=== PATIENT | male | born 1940 | race Two or more races ===

== ENCOUNTER → 2020-10-10 14:51 | Outpatient (BNVA) | payer MEDICARE, SELFPAY | PROVIDERS: PCP Internal Medicine; Visit Provider Urology | CPT/HCPCS: Q3014 ==

== ENCOUNTER → 2021-10-10 14:44 | Outpatient (BNVA) | payer MEDICARE, SELFPAY | PROVIDERS: PCP Internal Medicine; Visit Provider Urology | DX: N40.1 Benign prostatic hyperplasia with lower urinary tract symptoms (principal); N13.8 Other obstructive and reflux uropathy; R39.12 Poor urinary stream; R35.1 Nocturia | CPT/HCPCS: 51798; 99212 ==

== ENCOUNTER → 2021-12-19 13:48 | Outpatient (BNVA) | payer MEDICARE, MEDICAID, SELFPAY | PROVIDERS: PCP Internal Medicine; Visit Provider Urology | DX: N40.1 Benign prostatic hyperplasia with lower urinary tract symptoms (principal); N13.8 Other obstructive and reflux uropathy; R35.1 Nocturia; R39.12 Poor urinary stream | CPT/HCPCS: 52000; 99212 ==

== ENCOUNTER → 2022-10-10 08:34 | Outpatient (BNVA) | payer MEDICARE, MEDICAID, SELFPAY | PROVIDERS: PCP Internal Medicine; Visit Provider Urology | DX: N40.1 Benign prostatic hyperplasia with lower urinary tract symptoms (principal); N13.8 Other obstructive and reflux uropathy; R39.12 Poor urinary stream; R35.1 Nocturia; Z79.01 Long term (current) use of anticoagulants; Z79.899 Other long term (current) drug therapy | CPT/HCPCS: 51798; 99212 ==

== ENCOUNTER 2023-04-10 10:05 | Outpatient (AMB) | payer MEDICARE, MEDICAID, SELFPAY ==
--- NOTE | 2023-04-10 10:11 | A.OFFVIS_ITS ---
Intake Intake Visit Reasons: 6m follow up/PVR Intake Note: Patient is present for Telephone Follow up Urology Med: Finasteride, Terazosin Antibiotic Allergy:None Blood Thinner: Eliquis [facility]acy: [facility] Allergies oxybutynin Allergy (Unknown, Verified 04/10/23 10:15) Unknown HPI HPI Comments History of Present Illness Details Santos RODRIGUEZ is a very pleasant Hebrew [place]. He is a patient of Dr Haile. He is seen today for the following urologic conditions. - lower urinary tract symptoms - weakness of stream Telemedicine Evaluation 15 min Consultation Energy Excelerator Coni Video attempted PVR today 0 Significantly improved urgency and frequency Minimal nocturia Prior Cystoscopy with trilobar hypertrophy - had discussed GreenLight laser prostate Six month review with PSA Lower Urinary Tract Symptoms: Current visit is for further evaluation of, lower urinary tract symptoms, predominate obstructive symptoms. Current treatment includes medication, 5-AR. - maximum dose alpha-yenny and finasteride - 10 mg terazosin, 5 mg finasteride Prostate Symptom Score /20 , Mild (0-8), Bother 3. Symptoms include incomplete emptying, nocturia (>2) 1/20 , weak stream, and are stable. Prostate volume 50+gm. Testing at next visit will include bladder scan. Treatment plan continue with current medications Review of Systems Const All systems reviewed & are unremarkable except as noted in HPI and below Reports no additional complaints Resp Reports no additional complaints GI Reports no additional complaints Reports as per HPI Musc Reports no additional complaints Physical Exam Telemedicine evaluation Appropriate responses Regular breathing rate and rhythm HEENT Head: Yes normal to inspection Ears: hearing grossly normal bilaterally Eyes General: appearance normal, both eyes and all related structures Neck Neck: Yes normal visual inspection Chest Chest palpation & inspection: normal inspection of the chest Resp Effort & Inspection: normal respiratory effort and able to speak in complete sentences Assessment & Plan Assessment & Plan (1) Weak urinary stream: Code(s): R39.12 - Poor urinary stream (2) Nocturia more than twice per night: Code(s): R35.1 - Nocturia (3) BPH w urinary obs/LUTS: Code(s): N40.1 - Benign prostatic hyperplasia with lower urinary tract symptoms; N13.8 - Other obstructive and reflux uropathy Plan Six month follow-up Patient Instructions: Imaging studies, laboratory and physical exam results were discussed and reviewed in detail. No major barriers to patient understanding were identified. An opportunity to ask questions regarding the treatment plan was provided. All questions were answered. The patient expressed understanding and agreement with the above treatment plan. The patient is aware they should contact our office by phone for worsening of their current condition or the appearance of new urologic symptoms. Compliance is encouraged with any medications and followup testing that is ordered. It is a privilege to participate in the urologic care of your patient. If you have any questions or concerns regarding treatment for the above conditions, or other urologic issues, please do not hesitate to contact me. The office telephone contact is [phone]. This note is constructed using voice recognition software. While every effort has been made to ensure accuracy early childhood education worker errors may have been included. Yours sincerely, Dr René Kaufman MD, [facility] - Urology Providers of Expert, Compassionate Care for the Genitourinary System Telehealth Telehealth Location of provider rendering services: practice address Location of patient: address on file Patient Identification confirmed using: Name, : Yes Telehealth method: video Patient verbally consented to treatment: Yes Patient verbally consented to billing insurance company: Yes Patient informed of any privacy concerns related to visit: Yes Coding Level of Care Code Tele Est Pt Level 3 (92239) Diagnoses Weak urinary stream R39.12 Nocturia more than twice per night R35.1 BPH w urinary obs/LUTS N40.1; N13.8
== END 2023-04-11 12:39 | disposition home or self-care (01) ==
LOC: HO.HUSH 10:05
PROVIDERS: PCP Internal Medicine; Visit Provider Urology
DX: N40.1 Benign prostatic hyperplasia with lower urinary tract symptoms (principal); R39.12 Poor urinary stream; R35.1 Nocturia; N13.8 Other obstructive and reflux uropathy
CPT/HCPCS: 99213

== ENCOUNTER → 2023-04-10 10:05 | Outpatient (BNVA) | payer MEDICARE, MEDICAID, SELFPAY | PROVIDERS: PCP Internal Medicine; Visit Provider Urology ==

== ENCOUNTER 2023-10-15 10:58 | Outpatient (REF) | payer MEDICARE, SELFPAY ==
[2023-10-15 12:49] LABS: Prostate Specific Antigen 1.78 ng/mL (<0.05-4.0)
== END 2023-10-15 10:59 | disposition home or self-care (01) ==
LOC: HO.LAB 10:58
PROVIDERS: Visit Provider Urology
DX: Z12.5 Encounter for screening for malignant neoplasm of prostate (principal); N40.1 Benign prostatic hyperplasia with lower urinary tract symptoms; N13.8 Other obstructive and reflux uropathy
CPT/HCPCS: 36415; 84153

== ENCOUNTER 2023-11-28 13:38 | Outpatient (AMB) | payer MEDICARE, SELFPAY ==
--- NOTE | 2023-11-28 13:38 | MHC.OFFVIS ---
Intake Intake Visit Reasons: 6M PSA/PVR(set)Confirmed Intake Note: Patient presents today for a follow up on: PSA/PVR Meds- None Allergies to Antibiotic- No Known Allergies Blood Thinner- Eliquis Patient stated he is not taking Terazosin or Finasteride Post Void Residual: 47ml Floor Coverings Installer Required: No Accompanied by: Self / Same As Patient Allergies oxybutynin Allergy (Unknown, Verified 11/28/23 13:51) Unknown Medication List - Last Reconciled 11/28/23 by René Kaufman MD allopurinol 100 mg PO DAILY apixaban (Eliquis) 5 mg PO BID atorvastatin 40 mg PO DAILY finasteride 5 mg PO DAILY 90 days lisinopril-hydrochlorothiazide 20-12.5 mg 1 tab PO DAILY metoprolol succinate ER 100 mg PO DAILY omeprazole 20 mg PO DAILY HPI HPI Comments History of Present Illness Details Santos RODRIGUEZ is a very pleasant Citizen Of [place] Ben[place]. He is a patient of Dr Haile. He is seen today for the following urologic conditions. - lower urinary tract symptoms - weakness of stream PVR 40 cc PSA 10/18 1.8 Prior Cystoscopy with trilobar hypertrophy - had discussed GreenLight laser prostate Lower Urinary Tract Symptoms: Current visit is for further evaluation of, lower urinary tract symptoms, predominate obstructive symptoms. Current treatment includes medication, 5-AR. - maximum dose alpha-yenny and finasteride - 10 mg terazosin, 5 mg finasteride Prostate Symptom Score 1/20 , Mild (0-8), Bother 3. Symptoms include incomplete emptying, nocturia (>2) 1/20 , weak stream, and are stable. Prostate volume 50+gm. Testing at next visit will include bladder scan. Treatment plan continue with current medications Review of Systems Const Denies chills and Denies fever(s) Card Reports no additional complaints and Denies syncope Resp Denies cough GI Denies abdominal pain and Denies heartburn Reports as per HPI and Denies change in libido Neuro Denies syncope Psych Denies change in libido Endo Denies change in libido Physical Exam Const General: cooperative, healthy appearing, comfortable and no acute distress Orientation/consciousness: patient oriented x3 HEENT Face and sinus: Yes normal facial exam Mouth: moist mucous membranes Neck Neck: Yes normal visual inspection, Yes full ROM and Yes trachea midline Chest Chest palpation & inspection: normal inspection of the chest Resp Effort & Inspection: normal respiratory effort, able to speak in complete sentences and no respiratory distress GI Inspection: Yes normal to inspection Back/Spine/Pelvis Cervical Spine: normal cervical lordosis Thoracic/Lumbar Spine: thoracic and lumbar spine normal to inspection Skin General skin exam: no rashes or lesions noted Neuro General: patient oriented x3, gait normal, tone normal and moves all extremities Extrem General: Yes normal to inspection and Yes capillary refill normal Office Procedures Post Void Residual Post Residual Void Post Void Residual (PVR): 47 [id number]-[id number] Void Residual by ultrasound Assessment & Plan Assessment & Plan (1) Nocturia more than twice per night: Code(s): R35.1 - Nocturia (2) BPH w urinary obs/LUTS: Code(s): N40.1 - Benign prostatic hyperplasia with lower urinary tract symptoms; N13.8 - Other obstructive and reflux uropathy (3) Weak urinary stream: Code(s): R39.12 - Poor urinary stream Plan We discussed the nature of the decision and reasonable options for performing a prostate intervention. Interventions include TURP, GreenLight laser enucleation of the prostate, GreenLight laser ablation of the prostate, transurethral incision of the prostate, and I-Tend prostate procedure. Options such as medical therapy were discussed. The relative uncertainties and benefits related to each alternate procedure were adequately discussed. General surgical risks including, but not limited to, pain, bleeding, infection, myocardial infarction, pulmonary embolus, deep vein thrombosis and cerebrovascular accident which may result in further hospitalization were discussed. Full disclosure of the procedure as well as all major risks, benefits and complications were discussed including but not limited to damage to the urethra or bladder neck, recurrent BPH, retrograde ejaculation, bladder infection, urge, de zohra frequency, incomplete emptying, dysuria, remote chance of erectile dysfunction, epididymitis, and meatal stenosis. The success rate of the procedure was discussed. Success of the procedure in the short-term does not necessarily guarantee that long-term success will be maintained. Suitable follow up will need to be maintained. The patient showed understanding of discussion. An opportunity was provided for questions to be answered and wishes to proceed with the following procedure. - GreenLight laser prostate Orders: Orders AMB Post Void Residual by ultrasound Today R33.9 - Retention of urine, unspecified Medications: New finasteride 5 mg PO DAILY 90 days 90 tabs 1RF N13.8 - Other obstructive and reflux uropathy, N40.1 - Benign prostatic hyperplasia with lower urinary tract symptoms, R33.9 - Retention of urine, unspecified Patient Instructions: Imaging studies, laboratory and physical exam results were discussed and reviewed in detail. No major barriers to patient understanding were identified. An opportunity to ask questions regarding the treatment plan was provided. All questions were answered. The patient expressed understanding and agreement with the above treatment plan. The patient is aware they should contact our office by phone for worsening of their current condition or the appearance of new urologic symptoms. Compliance is encouraged with any medications and followup testing that is ordered. It is a privilege to participate in the urologic care of your patient. If you have any questions or concerns regarding treatment for the above conditions, or other urologic issues, please do not hesitate to contact me. The office telephone contact is [phone]. This note is constructed using voice recognition software. While every effort has been made to ensure accuracy signal fitter errors may have been included. Yours sincerely, Dr René Kaufman MD, [facility] - Urology Providers of Expert, Compassionate Care for the Genitourinary System Coding Level of Care Code Est Pt Level 4 (63464) Diagnoses Nocturia more than twice per night R35.1 BPH w urinary obs/LUTS N40.1; N13.8 Weak urinary stream R39.12 CPT Codes Post Residual Void - PVR CPT Code: 21982-Ddyi Void Residual by ultrasound ([id number])
== END 2023-11-28 14:07 | disposition home or self-care (01) ==
LOC: HO.HUSH 13:38
PROVIDERS: PCP Internal Medicine; Visit Provider Urology
DX: N40.1 Benign prostatic hyperplasia with lower urinary tract symptoms (principal); R35.1 Nocturia; N13.8 Other obstructive and reflux uropathy; R39.12 Poor urinary stream
CPT/HCPCS: 99214

== ENCOUNTER → 2023-11-28 13:38 | Outpatient (BNVA) | payer MEDICARE, SELFPAY | PROVIDERS: PCP Internal Medicine; Visit Provider Urology | DX: N40.1 Benign prostatic hyperplasia with lower urinary tract symptoms (principal); N13.8 Other obstructive and reflux uropathy; R39.12 Poor urinary stream; R35.1 Nocturia | CPT/HCPCS: 51798; 99212 ==

== ENCOUNTER 2023-12-30 13:56 | Outpatient (AMB) | payer MEDICARE, SELFPAY ==
--- NOTE | 2023-12-30 13:56 | A.OFFVIS_ITS ---
Intake Visit Reasons: H&P procedure Intake Note: Patient presents today via phone for a follow up H&P Procedure: Meds- Finasteride Allergies to Antibiotic- No Known Allergies Blood Thinner- Eliquis Music Intern Required: No Accompanied by: Self / Same As Patient Allergies oxybutynin Allergy (Unknown, Verified 12/30/23 13:57) Unknown HPI Comments Details: Santos RODRIGUEZ is a very pleasant Yi Sudanese. He is a patient of Dr Haile. He is seen today for the following urologic conditions. - lower urinary tract symptoms - weakness of stream Telemedicine Evaluation 15 min Consultation [employer] Coni Video attempted Discussed greenlight laser therapy with Santos and daughter Questions answered PVR 40 cc PSA 10/18 1.8 Prior Cystoscopy with trilobar hypertrophy - had discussed GreenLight laser prostate Lower Urinary Tract Symptoms: Current visit is for further evaluation of, lower urinary tract symptoms, predominate obstructive symptoms. Current treatment includes medication, 5-AR. - maximum dose alpha-yenny and finasteride - 10 mg terazosin, 5 mg finasteride Prostate Symptom Score 1/20 , Mild (0-8), Bother 3. Symptoms include incomplete emptying, nocturia (>2) 1/20 , weak stream, and are stable. Prostate volume 50+gm. Testing at next visit will include bladder scan. Treatment plan continue with current medications Review of Systems Const Denies chills and Denies fever(s) Card Reports no additional complaints and Denies syncope Resp Denies cough GI Denies abdominal pain and Denies heartburn Reports as per HPI and Denies change in libido Neuro Denies syncope Psych Denies change in libido Endo Denies change in libido Physical Exam Const General: cooperative, healthy appearing, comfortable and no acute distress Orientation/consciousness: patient oriented x3 HEENT Face and sinus: Yes normal facial exam Mouth: moist mucous membranes Neck Neck: Yes normal visual inspection, Yes full ROM and Yes trachea midline Chest Chest palpation & inspection: normal inspection of the chest Resp Effort & Inspection: normal respiratory effort, able to speak in complete sentences and no respiratory distress GI Inspection: Yes normal to inspection Back/Spine/Pelvis Cervical Spine: normal cervical lordosis Thoracic/Lumbar Spine: thoracic and lumbar spine normal to inspection Skin General skin exam: no rashes or lesions noted Neuro General: patient oriented x3, gait normal, tone normal and moves all extremities Extrem General: Yes normal to inspection and Yes capillary refill normal Telehealth Telehealth Telehealth Platform: [employer] Location of provider rendering services: practice address Location of patient: address on file Patient Identification confirmed using: Name, : Yes Telehealth method: video Patient verbally consented to treatment: Yes Patient verbally consented to billing insurance company: Yes Patient informed of any privacy concerns related to visit: Yes Minutes spent on Phone/Video with Pt.: 15 Assessment & Plan Assessment & Plan (1) Nocturia more than twice per night: Code(s): R35.1 - Nocturia Category: Medical (2) BPH w urinary obs/LUTS: Code(s): N40.1 - Benign prostatic hyperplasia with lower urinary tract symptoms; N13.8 - Other obstructive and reflux uropathy Category: Medical (3) Weak urinary stream: Code(s): R39.12 - Poor urinary stream Category: Medical Plan We discussed the nature of the decision and reasonable options for performing a prostate intervention. Interventions include TURP, GreenLight laser enucleation of the prostate, GreenLight laser ablation of the prostate, transurethral incision of the prostate, and I-Tend prostate procedure. Options such as medical therapy were discussed. The relative uncertainties and benefits related to each alternate procedure were adequately discussed. General surgical risks including, but not limited to, pain, bleeding, infection, myocardial infarction, pulmonary embolus, deep vein thrombosis and cerebrovascular accident which may result in further hospitalization were discussed. Full disclosure of the procedure as well as all major risks, benefits and complications were discussed including but not limited to damage to the urethra or bladder neck, recurrent BPH, retrograde ejaculation, bladder infection, urge, de zohra frequency, incomplete emptying, dysuria, remote chance of erectile dysfunction, epididymitis, and meatal stenosis. The success rate of the procedure was discussed. Success of the procedure in the short-term does not necessarily guarantee that long-term success will be maintained. Suitable follow up will need to be maintained. The patient showed understanding of discussion. An opportunity was provided for questions to be answered and wishes to proceed with the following procedure. - GreenLight laser prostatectomy Patient Instructions: Imaging studies, laboratory and physical exam results were discussed and reviewed in detail. No major barriers to patient understanding were identified. An opportunity to ask questions regarding the treatment plan was provided. All questions were answered. The patient expressed understanding and agreement with the above treatment plan. The patient is aware they should contact our office by phone for worsening of their current condition or the appearance of new urologic symptoms. Compliance is encouraged with any medications and followup testing that is ordered. It is a privilege to participate in the urologic care of your patient. If you have any questions or concerns regarding treatment for the above conditions, or other urologic issues, please do not hesitate to contact me. The office telephone contact is [phone]. This note is constructed using voice recognition software. While every effort has been made to ensure accuracy ware finisher errors may have been included. Yours sincerely, Dr René Kaufman MD, [facility] - Urology Providers of Expert, Compassionate Care for the Genitourinary System Coding Level of Care Code Tele Est Pt Level 4 (09006) Diagnoses Nocturia more than twice per night R35.1 BPH w urinary obs/LUTS N40.1; N13.8 Weak urinary stream R39.12
== END 2023-12-30 14:37 | disposition home or self-care (01) ==
LOC: HO.HUSH 13:56
PROVIDERS: PCP Internal Medicine; Visit Provider Urology
DX: N40.1 Benign prostatic hyperplasia with lower urinary tract symptoms (principal); R35.1 Nocturia; N13.8 Other obstructive and reflux uropathy; R39.12 Poor urinary stream
CPT/HCPCS: 99214

== ENCOUNTER → 2023-12-30 13:56 | Outpatient (BNVA) | payer MEDICARE, SELFPAY | PROVIDERS: PCP Internal Medicine; Visit Provider Urology ==

== ENCOUNTER 2024-03-01 06:53 | Day surgery (SDC) | payer MEDICARE, SELFPAY ==
[2024-03-01] VITALS (15 sets, daily range): BP systolic 130–172; BP diastolic 55–74; PULSE 50–62; RESP 16; TEMP 36.4–36.8; O2SAT 92–100; BMI 27.1
--- NOTE | 2024-03-01 08:18 | HO.ANESPROP2 ---
[facility] Active Problems Active Problems: All Active Problems Weak urinary stream (Acute) Nocturia more than twice per night (Acute) BPH w urinary obs/LUTS (Acute) Past Medical History Medical History Atrial fibrillation Cataract BPH (benign prostatic hyperplasia) Gout High cholesterol GERD (gastroesophageal reflux disease) HTN (hypertension) Surgical History Surgical History History of surgery History of Problems with Anesthesia: No Social History Social History Patient Tobacco Use Status: Former Tobacco user Smoked in Last 30 Days: No Use of substances other than those prescribed or required for medical reasons: No Are you DNR?: No Advance Directives: No Advance Directives Information Provided: Yes Meds Allergies Allergy/AdvReac Type Severity Reaction Status Date / Time oxybutynin Allergy Unknown Unknown Verified 12/30/23 13:57 Active Medications: Current Medications Levofloxacin (Levaquin) 500 mg in 100 mls @ 100 mls/hr IV PREOP ONE Stop: 03/01/24 08:27 Home Medications ?Medication ?Instructions ?Recorded ?Confirmed ?Last Taken ?Type allopurinol 100 mg tablet 100 mg PO DAILY 10/10/21 11/28/23 Unknown History atorvastatin 40 mg tablet 40 mg PO DAILY 10/10/21 11/28/23 Unknown History lisinopril 20 1 tab PO DAILY 10/10/21 11/28/23 Unknown History mg-hydrochlorothiazide 12.5 mg tablet metoprolol succinate 100 mg 100 mg PO DAILY 10/10/21 11/28/23 Unknown History tablet,extended release 24 hr omeprazole 20 mg capsule,delayed 20 mg PO DAILY 10/10/21 11/28/23 Unknown History release apixaban 5 mg tablet (Eliquis) 5 mg PO BID 12/19/21 11/28/23 02/25/24 History Exam Height,Weight and Vital Signs: Height 5 ft 7 in Weight 78.471 kg Airway Mallampati Class: II (edentulous) TM Dist: >3cm Neck ROM: Limited Denture: Upper and Lower Loose/Missing/Broken Teeth: Yes, Upper and Lower Heart: RRR Lungs: CTA Assessment and Plan Assessment Anesthesia Assessment: Anesthesia Plan Discussed and Chart Reviewed Final Anesthetic Review History of Problems with Anesthesia: No NPO: Yes ASA Class: III Final Preanesthetic Review: Meds/Allgs Chart Reviewed, Consent Obtained/Reviewed and Anes Risks/Benef Reviewed Patient Risk: Intermediate Procedure Risk: Low Anesthetic Plan Anesthetic Plan: GA Disposition: Standard PACU
--- NOTE | 2024-03-01 08:24 | ECG_ITS ---
Test Reason : pre-op Blood Pressure : / mmHG Vent. Rate : 061 BPM Atrial Rate : 061 BPM P-R Int : 208 ms QRS Dur : 146 ms QT Int : 462 ms P-R-T Axes : 076 028 138 degrees QTc Int : 465 ms Normal sinus rhythm Left bundle branch block Abnormal ECG No previous ECGs available Referred By: Denise Hyde Electronically Signed By:Alejandro Hernandez
[2024-03-01] MEDS: Lactated Ringers 1,000 ML 50 ML IVCONT (08:32)
--- NOTE | 2024-03-01 08:47 | P.HPSUR_ITS ---
Pre-Procedural Eval Section A - 24 Hr Update-Section A only Date of Service: 03/01/24 The patient is an INPATIENT: No Changes since office visit: No Cold of Flu in the past 2 weeks, No New Medical Problems, No Changes in Medication and No Patient answered all questions The patient has been examined within 24 hours of the surgical procedure. The History & Physical has been completed within 30 days and I have reviewed it.: Yes Section B - Complete if H&P > 30 days Chief Complaint: Benign prostatic hyperplasia with lower urinary Allergies: Allergies Allergy/AdvReac Type Severity Reaction Status Date / Time oxybutynin Allergy Unknown Unknown Verified 12/30/23 13:57 Review of Systems Sugical H&P ROS: Negative: Constitution, Cardiovascular, Respiratory, Neurological, Psychiatric, Hem-Onc, Allergic/Immunologic, Gastrointestinal, Genitourinary, Musculoskeletal, Integumentary, Endocrine and Eyes/Ears/Nose /Throat Exam Surgical H&P Exam: Normal: HEENT, Normal: Heart, Normal: Lungs, Normal: Extremities, Normal: Abdomen, Normal: Skin and Normal: Neurological Plan Diagnosis/Plan: Unchanged (GreenLight laser prostatectomy) I have reviewed the history and physical and performed a pertinent physical examination on my patient. No changes have occurred unless specified. Time Spent With Patient Time: Total time managing care of this patient today ____ minutes.
--- NOTE | 2024-03-01 10:09 | P.OP_ITS ---
Operative Note Operative Note Date of Service: 03/01/24 Narrative: PreOperative Diagnosis: Bladder outlet obstruction Post Operative Diagnosis: Bladder outlet obstruction Procedure: GreenLight Laser Enucleation of the prostate CPT 37389 Surgeon: Dr René Kaufman Anesthesia: General History of bladder outlet obstruction. Treated with alpha-yenny and other medications. Still with symptoms. On cystoscopy in office has trilobar prostate. Recommendation for prostate procedure with laser enucleation of prostate. Risks and benefits have been discussed. Focus was placed on development of retrograde ejaculation which is a normal part of this procedure. Procedure: After informed consent was verified the patient was brought to the operating room and placed in a supine position. Anesthesia was administered per protocol. Patient was placed in modified dorsal lithotomy position and prepped and draped in a sterile fashion. Safety pause time-out was confirmed. Antibiotics have been given. A Twenty-four Ethiopian laser cystoscope was inserted per urethra. No abnormalities were found of the anterior and bulbar urethra. The prostatic urethra shows trilobar hypertrophy. The bladder was examined and both ureteric orifices were seen in their normal positions away from the area of interest. Bladder trabeculation Grade 1. Using a GreenLight laser with settings of 80 mccarthy incisions were made at the 5 and 7 o'clock position. The incisions were taken down from the bladder neck down to the level of the veru. These were gradually deepened in order to define the lateral aspects of the median lobe area. Once clearly defined they will also extended in the lateral directions in order to create a deep groove. The median lobe was then ablated and enucleated tissue released into the bladder with the laser power increased to 120 W. Once the median lobe area had been cleared attention was directed to the lateral lobes. Starting with the patient's left lateral lobe. First the 05:00 o'clock groove was further developed. This was moved in the lateral direction to undermine the tissue on the lateral side running from the bladder neck to the prostate apex. The ureteric orifice was used to guide incisions. Focus was then placed on the laser at the 1 o'clock position to developing a s econdary groove down to the level of bladder fibers. The creation of a second deep groove defined a segment of intervening tissue similar to a slice of orange. At the apex of the prostate the 2 grooves were linked the us releasing the intervening tissue. This tissue was then removed with a combination of enucleation and ablation working from the apex toward the bladder neck. A similar procedure was repeated on the patient's right-hand side. The only differences being the position of the lateral groove at he 7 o'clock position and the secondary groove at the 11 o'clock position, Otherwise the procedure was developed in a mirror fashion. After the majority of tissue had been debulked remnant tissue was ablated with the side fire laser and the curve of the prostate followed up each side wall clearly defining the anterior remnant strip that remained between the 11 and 1 o'clock positions. When this was had been completed debris and pieces of prostate were removed from the bladder with irrigation. Both ureteric orifices were reviewed again in shown to be patent in away from any areas of energy damage. The apical area was reviewed in any stray ooze was controlled. A 22 Ethiopian 30 cc balloon Schaffer catheter was placed over a stylet into the bladder. Clear efflux was obtained upon irrigation with a Malachi piston syringe. 30 cc was placed in the balloon and gentle traction was placed. A snap was used to hold tension on the catheter to control bleeding during patient moved and transported. A drainage bag was placed. Once transportation is complete to the PACU the snap will be removed. The patient tolerated the procedure well, he was extubated in the operating and transferred in a stable condition to the recovery area. Total Power 87 kW Lasing time 13:18 Pathology: Prostate tissue Drains: Schaffer catheter
[2024-03-01] MEDS: Acetaminophen 325 MG TABLET 650 MG PO (11:25)
== END 2024-03-01 13:43 | disposition home or self-care (01) ==
PROVIDERS: PCP Internal Medicine; Visit Provider Urology
PROC: (CPT 52648; principal; 2024-03-01 09:00)
DX: N40.1 Benign prostatic hyperplasia with lower urinary tract symptoms (principal); N13.8 Other obstructive and reflux uropathy; R35.1 Nocturia; R39.12 Poor urinary stream; I48.91 Unspecified atrial fibrillation; I10 Essential (primary) hypertension; E78.00 Pure hypercholesterolemia, unspecified; M10.9 Gout, unspecified; Z79.01 Long term (current) use of anticoagulants; Z79.899 Other long term (current) drug therapy; Z88.8 Allergy status to other drugs, medicaments and biological substances; Z87.891 Personal history of nicotine dependence; Z98.890 Other specified postprocedural states
CPT/HCPCS: 52649; 88305; 93005; J1956; J2704; J3010

== ENCOUNTER → 2024-03-01 06:53 | Outpatient (BNV) | payer MEDICARE, SELFPAY | PROVIDERS: PCP Internal Medicine; Visit Provider Urology | DX: N32.0 Bladder-neck obstruction (principal) | CPT/HCPCS: 52649 ==

== ENCOUNTER → 2024-03-01 08:24 | Outpatient (BNV) | payer MEDICARE, SELFPAY | PROVIDERS: PCP Internal Medicine; Visit Provider Internal Medicine Cardiovascular Disease | DX: I44.7 Left bundle-branch block, unspecified (principal); Z01.810 Encounter for preprocedural cardiovascular examination; R94.31 Abnormal electrocardiogram [ECG] [EKG] | CPT/HCPCS: 93010 ==

== ENCOUNTER → 2024-03-04 10:02 | Outpatient (BNVA) | payer MEDICARE, SELFPAY | PROVIDERS: PCP Internal Medicine; Visit Provider Urology | DX: N40.1 Benign prostatic hyperplasia with lower urinary tract symptoms (principal); N13.8 Other obstructive and reflux uropathy; R35.1 Nocturia; R39.12 Poor urinary stream | CPT/HCPCS: 51700 ==

== ENCOUNTER 2024-04-08 08:48 | Outpatient (AMB) | payer MEDICARE, SELFPAY ==
--- NOTE | 2024-04-08 09:34 | A.OFFVIS_ITS ---
Intake Visit Reasons: Greenlight follow up Intake Note: Patient is Present for PVR/ Urology Med:Finasteride Antibiotic Allergy:None Blood Thinner:Flynn Last PVR: 47 Todays PVR: 120ml Security Incident Response Specialist Required: No Accompanied by: Other Relationship Allergies oxybutynin Allergy (Unknown, Verified 04/08/24 09:38) Unknown HPI Comments Details: Santos RODRIGUEZ is a very pleasant Chinese Palauan. He is a patient of Dr Haile. He is seen today for the following urologic conditions. - lower urinary tract symptoms - weakness of stream Accompanied by his daughter Six week follow-up GreenLight laser On finasteride PVR 100 Also Flynn May come off finasteride Six-month follow-up PSA PVR 40 cc PSA 10/18 1.8 01/15 GreenLight laser Lower Urinary Tract Symptoms: Current visit is for further evaluation of, lower urinary tract symptoms, predominate obstructive symptoms. Current treatment includes medication, 5-AR. - maximum dose alpha-yenny and finasteride - 10 mg terazosin, 5 mg finasteride Prostate Symptom Score 1/20 , Mild (0-8), Bother 3. Symptoms include incomplete emptying, nocturia (>2) 1/20 , weak stream, and are stable. Prostate volume 50+gm. Testing at next visit will include bladder scan. Treatment plan continue with current medications [facility] Medical History Atrial fibrillation Cataract BPH (benign prostatic hyperplasia) Gout High cholesterol GERD (gastroesophageal reflux disease) HTN (hypertension) Surgical History History of surgery Social History Patient Tobacco Use Status: Former Tobacco user Review of Systems Const Denies chills and Denies fever(s) Card Reports no additional complaints and Denies syncope Resp Denies cough GI Denies abdominal pain and Denies heartburn Reports as per HPI and Denies change in libido Neuro Denies syncope Psych Denies change in libido Endo Denies change in libido Physical Exam Const General: cooperative, healthy appearing, comfortable and no acute distress Orientation/consciousness: patient oriented x3 HEENT Face and sinus: Yes normal facial exam Mouth: moist mucous membranes Neck Neck: Yes normal visual inspection, Yes full ROM and Yes trachea midline Chest Chest palpation & inspection: normal inspection of the chest Resp Effort & Inspection: normal respiratory effort, able to speak in complete sentences and no respiratory distress GI Inspection: Yes normal to inspection Back/Spine/Pelvis Cervical Spine: normal cervical lordosis Thoracic/Lumbar Spine: thoracic and lumbar spine normal to inspection Skin General skin exam: no rashes or lesions noted Neuro General: patient oriented x3, gait normal, tone normal and moves all extremities Extrem General: Yes normal to inspection and Yes capillary refill normal Office Procedures Post Void Residual Post Residual Void Post Void Residual (PVR): 120 85308-Afre Void Residual by ultrasound Assessment & Plan Assessment & Plan (1) Weak urinary stream: Code(s): R39.12 - Poor urinary stream Category: Medical (2) Nocturia more than twice per night: Code(s): R35.1 - Nocturia Category: Medical (3) BPH w urinary obs/LUTS: Code(s): N40.1 - Benign prostatic hyperplasia with lower urinary tract symptoms; N13.8 - Other obstructive and reflux uropathy Category: Medical Plan Six-month follow-up PSA and PVR Orders: Orders AMB Post Void Residual by ultrasound Today N13.8 - Other obstructive and reflux uropathy, N40.1 - Benign prostatic hyperplasia with lower urinary tract symptoms Prostate Specific Antigen 6 Months N13.8 - Other obstructive and reflux uropathy, N40.1 - Benign prostatic hyperplasia with lower urinary tract symptoms Patient Instructions: Imaging studies, laboratory and physical exam results were discussed and reviewed in detail. No major barriers to patient understanding were identified. An opportunity to ask questions regarding the treatment plan was provided. All questions were answered. The patient expressed understanding and agreement with the above treatment plan. The patient is aware they should contact our office by phone for worsening of their current condition or the appearance of new urologic symptoms. Compliance is encouraged with any medications and followup testing that is ordered. It is a privilege to participate in the urologic care of your patient. If you have any questions or concerns regarding treatment for the above conditions, or other urologic issues, please do not hesitate to contact me. The office telephone contact is [phone]. This note is constructed using voice recognition software. While every effort has been made to ensure accuracy underwear trimmer errors may have been included. Yours sincerely, Dr René Kaufman MDRONALD [facility] - Urology Providers of Expert, Compassionate Care for the Genitourinary System Coding Level of Care Code Est Pt Level 3 (93782) Diagnoses Weak urinary stream R39.12 Nocturia more than twice per night R35.1 BPH w urinary obs/LUTS N40.1; N13.8 CPT Codes Post Residual Void - PVR CPT Code: 11525-Mwxp Void Residual by ultrasound ([id number])
== END 2024-04-08 10:15 | disposition home or self-care (01) ==
LOC: HO.HUSH 08:48
PROVIDERS: PCP Internal Medicine; Visit Provider Urology
DX: N40.1 Benign prostatic hyperplasia with lower urinary tract symptoms (principal); R39.12 Poor urinary stream; R35.1 Nocturia; N13.8 Other obstructive and reflux uropathy
CPT/HCPCS: 99024

== ENCOUNTER → 2024-04-08 08:48 | Outpatient (BNVA) | payer MEDICARE, SELFPAY | PROVIDERS: PCP Internal Medicine; Visit Provider Urology | DX: N40.1 Benign prostatic hyperplasia with lower urinary tract symptoms (principal); R39.12 Poor urinary stream; R35.1 Nocturia; N13.8 Other obstructive and reflux uropathy | CPT/HCPCS: 51798; 99212 ==

== ENCOUNTER 2024-10-12 09:40 | Outpatient (REF) | payer MEDICARE, SELFPAY ==
--- OUTSIDE RECORDS SUMMARY | 2024-10-12 10:26 | XMS_ITS | Patient Health Record ---
[facility] Organization [facility] Address [address] [place] [address] Care Team Providers Care Lighting Specialist Name Role Phone Haseeb Haile MD Primary Care Provider Pablo Stokes Unavailable [phone] Allergies No Known Allergies Reason For Referral No Information Medications Medication SIG (Take, Route, Frequency, Duration) Notes Start Date End Date Status Allopurinol 100 MG 1 tablet Orally Once a day for 30 day(s) Active Omeprazole 20 MG 1 capsule 30 minutes before morning meal Orally Once a day for 30 day(s) Active Flomax 0.4 MG 1 capsule Orally Onc e a day for 30 day(s) Active Finasteride 5 MG 1 tablet Orally Once a day for 30 day(s) Active Lisinopril-hydroCHLOROthiaz frannie 20-12.5 MG 1 tablet Orally Once a day for 30 day(s) Active Metoprolol Succinate Active Atorvastatin Calcium Active eliquis 5 mg Active Social History Tobacco Use: Social History Observation Description Date Details (start date - stop date) Former Smoker NA - NA Tobacco Use/Smoking Question Answer Notes Are you a: former smoker Alcohol Screen Question Answer Notes Did you have a drink contain ing alcohol in the past year? Yes How often did you have 6 or more drinks on one occasion in the past year? Daily or almost daily (4 points) Points 4 Interpretation Positive Tobacco use other than smoking: Question Answer Notes Are you an other tobacco user? 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, bilateral legs (I70.203) Active confirmed Problem Localized, primary osteoarthritis of the ankle and/or foot (783262533) Primary osteoarthritis, right ankle and foot (M19.071) Active confirmed Problem Localized, primary osteoarthritis of the ankle and/or foot (886911772) Primary osteoarthritis, left 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) Active confirmed Problem Acquired hammer toe of right foot (4814040189859338 ) Other hammer toe(s) (acquired), right foot (M20.41) Active confirmed Problem Acquired hammer toe of left foot (3257525512048638 ) Other hammer toe(s) (acquired), left foot (M20.42) Active confirmed Plan Of Treatment Pending Test Test Name Order Date X ray : Foot, left 3V 05/21/2022 X ray : Foot, right 3V 05/21/2022 Insurance Providers Payer Name Payer Address Payer Phone Subscriber Number Group Number Insured Name Patient Relationship to Insured Coverage Start Date Coverage End Date [facility] 65 Medicare Preferred [address] [place] [address] [id number] Santos Farley Self - patient is the insured Medical (General) History Medical History History ICD Code Arthritis High blood pressure Poor circulation Surgical History Surgery Date(Month/Year) finger surgery vein surgery 2020
[2024-10-12 11:07] LABS: Prostate Specific Antigen 3.46 ng/mL (<0.05-4.0)
== END 2024-10-12 09:41 | disposition home or self-care (01) ==
LOC: HO.10HDL 09:40
PROVIDERS: Visit Provider Urology
DX: Z12.5 Encounter for screening for malignant neoplasm of prostate (principal); N13.8 Other obstructive and reflux uropathy; N40.1 Benign prostatic hyperplasia with lower urinary tract symptoms
CPT/HCPCS: 36415; 84153

== ENCOUNTER 2024-10-27 08:50 | Outpatient (AMB) | payer MEDICARE, SELFPAY ==
--- NOTE | 2024-10-27 08:52 | A.OFFVIS_ITS ---
Intake Visit Reasons: 6M/PSA/PVR(SET) Intake Note: Patient is Present for 6 month PVR/PSA Urology Med:Finasteride Antibiotic Allergy:None Blood Thinner:Eliquis Todays PVR: 54ml Hvac Field Service Technician Required: No Accompanied by: Other Relationship Allergies oxybutynin Allergy (Unknown, Verified 10/27/24 09:06) Unknown HPI Comments Details: Santos RODRIGUEZ is a very pleasant Citizen Of [place]an. He is a patient of Dr Haile. He is seen today for the following urologic conditions. - lower urinary tract symptoms - weakness of stream - erectile bladder Six-month follow-up PVR 50 cc PSA well-controlled PVR 40 cc PSA 10/18 1.8, 10/19 3.5 01/15 GreenLight laser Has urinary urgency and frequency consistent with male overactive bladder Nocturia x4 Trial VESIcare Lower Urinary Tract Symptoms: Current visit is for further evaluation of, lower urinary tract symptoms, predominate obstructive symptoms. Current treatment includes medication, 5-AR. - maximum dose alpha-yenny and finasteride - 10 mg terazosin, 5 mg finasteride Prostate Symptom Score 1/20 , Mild (0-8), Bother 3. Symptoms include incomplete emptying, nocturia (>2) 1/20 , weak stream, and are stable. Prostate volume 50+gm. Testing at next visit will include bladder scan. Treatment plan continue with current medications [facility] Medical History Atrial fibrillation Cataract BPH (benign prostatic hyperplasia) Gout High cholesterol GERD (gastroesophageal reflux disease) HTN (hypertension) Surgical History History of surgery Social History Patient Tobacco Use Status: Former Tobacco user Assessment & Plan Assessment & Plan (1) Overactive bladder: Code(s): N32.81 - Overactive bladder Category: Medical (2) Nocturia more than twice per night: Code(s): R35.1 - Nocturia Category: Medical (3) BPH w urinary obs/LUTS: Code(s): N40.1 - Benign prostatic hyperplasia with lower urinary tract symptoms; N13.8 - Other obstructive and reflux uropathy Category: Medical Plan Trial VESIcare Orders: Orders AMB Urinalysis Automated 10/26/24 Z13.9 - Encounter for screening, unspecified Medications: New tolterodine ER 2 mg PO DAILY 30 days 30 caps 1RF N32.81 - Overactive bladder, R39.15 - Urgency of urination tolterodine ER 2 mg PO DAILY 30 days 30 caps 1RF N32.81 - Overactive bladder, R39.15 - Urgency of urination Patient Instructions: This note is constructed using voice recognition software. While every effort has been made to ensure accuracy vice president errors may have been included. Imaging studies, laboratory and physical exam results were discussed and reviewed in detail. No major barriers to patient understanding were identified. An opportunity to ask questions regarding the treatment plan was provided. All questions were answered. The patient expressed understanding and agreement with the above treatment plan. The patient is aware they should contact our office by phone for worsening of their current condition or the appearance of new urologic symptoms. Compliance is encouraged with any medications and followup testing that is ordered. It is a privilege to participate in the urologic care of your patient. If you have any questions or concerns regarding treatment for the above conditions, or other urologic issues, please do not hesitate to contact me. The office telephone contact is [phone]. Sincerely, Dr René Kaufman MD, RONALD [facility] - Urology Compassionate Specialist Care for the Genitourinary System Coding Level of Care Code Est Pt Level 4 (70493) Diagnoses Overactive bladder N32.81 Nocturia more than twice per night R35.1 BPH w urinary obs/LUTS N40.1; N13.8
--- OUTSIDE RECORDS SUMMARY | 2024-10-27 09:35 | XMS_ITS | Patient Health Record ---
Author Organization [facility] Address [address] [place] [address] Care Team Providers Care Director Biostatistics Name Role Phone Haseeb Haile MD Primary Care Provider Pablo Stokes Unavailable [phone] Allergies No Known Allergies Reason For Referral [...] Problem Status W/U Status Risk Notes Problem Bilateral 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) ([id number] ) Unspecified atherosclerosis of big sandy arteries of extremities, bilateral legs (I70.203) Active confirmed Problem Localized, primary osteoarthritis of the ankle and/or foot (187537721) Primary osteoarthritis, right ankle and foot (M19.071) Active confirmed Problem Localized, primary osteoarthritis of the ankle and/or foot (912464706) Primary osteoarthritis, left 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) Active confirmed Problem Acquired hammer toe of right foot (0975839449036819) Other hammer toe(s) (acquired), right foot (M20.41) Active confirmed Problem Acquired hammer toe of left foot (0791992342361374) Other hammer toe(s) (acquired), left foot (M20.42) Active confirmed Plan Of Treatment Pending Test Test Name Order Date X ray : Foot, left 3V 05/21/2022 X ray : Foot, right 3V 05/21/2022 Insurance Providers Payer Name Payer Address Payer Phone Subscriber Number Group Number Insured Name Patient Relationship to Insured Coverage Start Date Coverage End Date [employer] 65 Medicare Preferred [address] [place] [address] [id number] Santos Farley Self - patient is the insured Medical (General) History Medical History History ICD Code Arthritis High blood pressure Poor circulation Surgical History Surgery Date(Month/Year) finger surgery vein surgery 2020
== END 2024-10-27 09:18 | disposition home or self-care (01) ==
PROVIDERS: PCP Internal Medicine; Visit Provider Urology
DX: N40.1 Benign prostatic hyperplasia with lower urinary tract symptoms (principal); N32.81 Overactive bladder; R35.1 Nocturia; N13.8 Other obstructive and reflux uropathy
CPT/HCPCS: 99214

== ENCOUNTER → 2024-10-27 08:50 | Outpatient (BNVA) | payer MEDICARE, SELFPAY | PROVIDERS: PCP Internal Medicine; Visit Provider Urology | DX: N32.81 Overactive bladder (principal); N40.1 Benign prostatic hyperplasia with lower urinary tract symptoms; R39.12 Poor urinary stream; N32.89 Other specified disorders of bladder; R35.1 Nocturia; N13.8 Other obstructive and reflux uropathy; Z79.01 Long term (current) use of anticoagulants | CPT/HCPCS: 99212 ==

== ENCOUNTER 2024-12-28 15:10 | Outpatient (AMB) | payer MEDICARE, SELFPAY ==
--- NOTE | 2024-12-28 15:20 | MHC.OFFVIS ---
Intake Visit Reasons: 2m/UA Intake Note: Patient is present for 2M/UA Urology Medication:FINASTERIDE,TOLTERODINE,ALLOPURINOL Antibiotic Allergy:NONE Blood Thinner:APIXABAN TODAY'S PVR:0ML'S Banking Services Advisor Required: No Allergies oxybutynin Allergy (Unknown, Verified 12/28/24 15:21) Unknown HPI Comments Details: Santos RODRIGUEZ is a very pleasant [place]i. He is a patient of Dr Haile. He is seen today for the following urologic conditions. - lower urinary tract symptoms - weakness of stream - erectile bladder Follow-up VESIcare trial Has urinary urgency and frequency consistent with male overactive bladder, nocturia x3 Minimal benefit low-dose VESIcare Trial solifenacin 10 mg daily 2 month follow-up check cystoscopy PVR 40 cc PSA 10/18 1.8, 10/19 3.5 Lower Urinary Tract Symptoms: Current visit is for further evaluation of, lower urinary tract symptoms, predominate obstructive symptoms. Current treatment includes medication, 5-AR. - maximum dose alpha-yenny and finasteride - 10 mg terazosin, 5 mg finasteride Prostate Symptom Score 20 , Mild (0-8), Bother 3. Symptoms include incomplete emptying, nocturia (>2) 09/13 , weak stream, and are stable. Greenlight laser 01/15 Prostate volume 50+gm. Testing at next visit will include bladder scan. Treatment plan continue with current medications [facility] Medical History Atrial fibrillation Cataract BPH (benign prostatic hyperplasia) Gout High cholesterol GERD (gastroesophageal reflux disease) HTN (hypertension) Surgical History History of surgery Social History Patient Tobacco Use Status: Former Tobacco user Review of Systems Const Denies chills and Denies fever(s) Card Reports no additional complaints and Denies syncope Resp Denies cough GI Denies abdominal pain and Denies heartburn Reports as per HPI and Denies change in libido Neuro Denies syncope Psych Denies change in libido Endo Denies change in libido Physical Exam Const General: cooperative, healthy appearing, comfortable and no acute distress Orientation/consciousness: patient oriented x3 HEENT Face and sinus: Yes normal facial exam Mouth: moist mucous membranes Neck Neck: Yes normal visual inspection, Yes full ROM and Yes trachea midline Chest Chest palpation & inspection: normal inspection of the chest Resp Effort & Inspection: normal respiratory effort, able to speak in complete sentences and no respiratory distress GI Inspection: Yes normal to inspection Back/Spine/Pelvis Cervical Spine: normal cervical lordosis Thoracic/Lumbar Spine: thoracic and lumbar spine normal to inspection Skin General skin exam: no rashes or lesions noted Neuro General: patient oriented x3, gait normal, tone normal and moves all extremities Extrem General: Yes normal to inspection and Yes capillary refill normal Office Procedures Post Void Residual Post Residual Void Post Void Residual (PVR): 0 10030-Mlaf Void Residual by ultrasound Assessment & Plan Assessment & Plan (1) Overactive bladder: Code(s): N32.81 - Overactive bladder Category: Medical (2) BPH w urinary obs/LUTS: Code(s): N40.1 - Benign prostatic hyperplasia with lower urinary tract symptoms; N13.8 - Other obstructive and reflux uropathy Category: Medical Plan Trial solifenacin 2 month follow-up check cysto Medications: New solifenacin 10 mg PO DAILY 30 days 30 tabs 1RF N32.81 - Overactive bladder Discontinued tolterodine ER Discontinued Reason: Patient Completed Course 2 mg PO DAILY 30 days 30 caps 1RF N32.81 - Overactive bladder, R39.15 - Urgency of urination Patient Instructions: This note is constructed using voice recognition software. While every effort has been made to ensure accuracy court administrator errors may have been included. Imaging studies, laboratory and physical exam results were discussed and reviewed in detail. No major barriers to patient understanding were identified. An opportunity to ask questions regarding the treatment plan was provided. All questions were answered. The patient expressed understanding and agreement with the above treatment plan. The patient is aware they should contact our office by phone for worsening of their current condition or the appearance of new urologic symptoms. Compliance is encouraged with any medications and followup testing that is ordered. It is a privilege to participate in the urologic care of your patient. If you have any questions or concerns regarding treatment for the above conditions, or other urologic issues, please do not hesitate to contact me. The office telephone contact is [phone]. Sincerely, Dr René Kaufman MD, RONALD [facility] - Urology Compassionate Specialist Care for the Genitourinary System Coding Level of Care Code Est Pt Level 4 (54189) Diagnoses Overactive bladder N32.81 BPH w urinary obs/LUTS N40.1; N13.8 CPT Codes Post Residual Void - PVR CPT Code: 46911-Uawn Void Residual by ultrasound ([id number])
--- OUTSIDE RECORDS SUMMARY | 2024-12-28 16:23 | XMS_ITS | Patient Health Record ---
[facility] Organization [facility] Address [address] [place] [address] Care Team Providers Care Mill Hand Name Role Phone Haseeb Haile MD Primary Care Provider Pablo Stokes Unavailable [phone] Allergies No Known Allergies Reason For Referral [...] 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) (78352090788256052 ) Unspecified atherosclerosis of [place] arteries of extremities, bilateral legs (I70.203) Active confirmed Problem Localized, primary osteoarthritis of the ankle and/or foot (107149748) Primary osteoarthritis, right ankle and foot (M19.071) Active confirmed Problem Localized, primary osteoarthritis of the ankle and/or foot (976381153) Primary osteoarthritis, left 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) Active confirmed Problem Acquired hammer toe of right foot (0125122069523677) Other hammer toe(s) (acquired), right foot (M20.41) Active confirmed Problem Acquired hammer toe of left foot (2627622243483537) Other hammer toe(s) (acquired), left foot (M20.42) Active confirmed Plan Of Treatment Pending Test Test Name Order Date X ray : Foot, left 3V 05/21/2022 X ray : Foot, right 3V 05/21/2022 Insurance Providers Payer Name Payer Address Payer Phone Subscriber Number Group Number Insured Name Patient Relationship to Insured Coverage Start Date Coverage End Date [employer] 65 Medicare Preferred [address] [place] [address] [id number] Santos Farley Self - patient is the insured Medical (General) History Medical History History ICD Code Arthritis High blood pressure Poor circulation Surgical History Surgery Date(Month/Year) finger surgery vein surgery 2020
== END 2024-12-28 16:08 | disposition home or self-care (01) ==
LOC: HO.HUSH 15:13
PROVIDERS: PCP Internal Medicine; Visit Provider Urology
DX: N32.81 Overactive bladder (principal); N40.1 Benign prostatic hyperplasia with lower urinary tract symptoms; N13.8 Other obstructive and reflux uropathy
CPT/HCPCS: 99214

== ENCOUNTER → 2024-12-28 15:10 | Outpatient (BNVA) | payer MEDICARE, SELFPAY | PROVIDERS: PCP Internal Medicine; Visit Provider Urology | DX: N40.1 Benign prostatic hyperplasia with lower urinary tract symptoms (principal); N52.9 Male erectile dysfunction, unspecified; R39.12 Poor urinary stream; N32.81 Overactive bladder; N13.8 Other obstructive and reflux uropathy; R39.15 Urgency of urination | CPT/HCPCS: 51798; 99212 ==

== ENCOUNTER 2025-03-08 10:45 | Outpatient (AMB) | payer MEDICARE, SELFPAY ==
--- NOTE | 2025-03-08 10:55 | MHC.OFFVIS ---
Intake Visit Reasons: Cysto Intake Note: Patient is present for cystoscopy Urology Medication:FINASTERIDE,TOLTERODINE,ALLOPURINOL Antibiotic Allergy:NONE Blood Thinner:APIXABAN Automation And Controls Supervisor Required: No Accompanied by: Self / Same As Patient Allergies oxybutynin Allergy (Unknown, Verified 03/08/25 10:56) Unknown HPI Comments Details: Santos RODRIGUEZ is a very pleasant Slovenian Wallisian. He is a patient of Dr Haile. He is seen today for the following urologic conditions. - lower urinary tract symptoms - weakness of stream - erectile bladder Follow-up VESIcare trial Has urinary urgency and frequency consistent with male overactive bladder, nocturia x3 Minimal benefit low-dose VESIcare, some benefit from high-dose solifenacin Cystoscopy today shows open bladder neck States he has good stream Trial Gemtesa PVR 40 cc PSA 10/18 1.8, 10/19 3.5 Lower Urinary Tract Symptoms: Current visit is for further evaluation of, lower urinary tract symptoms, predominate obstructive symptoms. Current treatment includes medication, 5-AR. - maximum dose alpha-yenny and finasteride - 10 mg terazosin, 5 mg finasteride Prostate Symptom Score 09/13 , Mild (0-8), Bother 3. Symptoms include incomplete emptying, nocturia (>2) 09/13 , weak stream, and are stable. Greenlight laser 01/15 Prostate volume 50+gm. Testing at next visit will include bladder scan. Treatment plan continue with current medications [facility] Medical History Atrial fibrillation Cataract BPH (benign prostatic hyperplasia) Gout High cholesterol GERD (gastroesophageal reflux disease) HTN (hypertension) Surgical History History of surgery Social History Patient Tobacco Use Status: Former Tobacco user Review of Systems Const Denies chills and Denies fever(s) Card Reports no additional complaints and Denies syncope Resp Denies cough GI Denies abdominal pain and Denies heartburn Reports as per HPI and Denies change in libido Neuro Denies syncope Psych Denies change in libido Endo Denies change in libido Physical Exam Const General: cooperative, healthy appearing, comfortable and no acute distress Orientation/consciousness: patient oriented x3 HEENT Face and sinus: Yes normal facial exam Mouth: moist mucous membranes Neck Neck: Yes normal visual inspection, Yes full ROM and Yes trachea midline Chest Chest palpation & inspection: normal inspection of the chest Resp Effort & Inspection: normal respiratory effort, able to speak in complete sentences and no respiratory distress GI Inspection: Yes normal to inspection Back/Spine/Pelvis Cervical Spine: normal cervical lordosis Thoracic/Lumbar Spine: thoracic and lumbar spine normal to inspection Skin General skin exam: no rashes or lesions noted Neuro General: patient oriented x3, gait normal, tone normal and moves all extremities Extrem General: Yes normal to inspection and Yes capillary refill normal Office Procedures Cystoscopy Consent Discussed risk and benefit or proposed procedure with the patient. Information consent for procedure given to the patient. Discussed technical aspects, risks, benefits and alternatives in full. Addressed all of the patient's questions and concerns regarding the procedure. The patient demonstrated knowledge and understanding. They wish to proceed with this procedure. Preparation The patient was prepped in the usual manner. A blue leather sorter was present and in the room. Genitalia was prepped with betadine solution in a sterile manner. Lidocaine Jelly 2% was placed into the urethra and 16Fr flexible Olympus cystoscope was inserted into the meatus after adequate lubrication. Procedure Cystoscopy performed using a disposable Urovue digital 16 [place] cystoscope. Meatus uncircumcised Urethra anterior and posterior urethra normal Prostatic Urethra TURP defect Bladder examination with retroflexion of cystoscope Bladder Orifices normal shape and position Bladder Capacity Normal Trabeculations grade 1 Cellule Formation - Diverticulum Formation None Mucosal Erythema None - Bladder Tumor None - 02423-[id number] DISPOSABLE SCOPE URO-G FLEXIBLE SCOPE Procedure code (CPT) selection complete Office Meds lidocaine HCl 2 % mucosal jelly in applicator Performing Provider: René Kaufman MD Performing Location: [facility] Administered by: Karla Wood RN on 03/08/25 11:02 Dose Route Admin Location Dispensed Lot Number Expiration Date NDC Senior Sales Assistant 10 mL intra-urethral 10 mL nitrofurantoin monohydrate/macrocrystals 100 mg capsule Performing Provider: René Kaufman MD Performing Location: [facility] Administered by: Karla Wood RN on 03/08/25 11:02 Dose Route Admin Location Dispensed Lot Number Expiration Date NDC Senior Sales Assistant 100 mg PO 1 cap Assessment & Plan Assessment & Plan (1) Overactive bladder: Code(s): N32.81 - Overactive bladder Category: Medical Plan Trial beta agonist Orders: Orders AMB Cystoscopy Today N13.8 - Other obstructive and reflux uropathy, N32.81 - Overactive bladder, N40.1 - Benign prostatic hyperplasia with lower urinary tract symptoms Medications: New vibegron 75 mg PO DAILY 90 tabs 1RF 90 days N32.81 - Overactive bladder Discontinued solifenacin Discontinued Reason: Patient Completed Course 10 mg PO DAILY 30 days 30 tabs 1RF N32.81 - Overactive bladder Patient Instructions: This note is constructed using voice recognition software. While every effort has been made to ensure accuracy top coater errors may have been included. Imaging studies, laboratory and physical exam results were discussed and reviewed in detail. No major barriers to patient understanding were identified. An opportunity to ask questions regarding the treatment plan was provided. All questions were answered. The patient expressed understanding and agreement with the above treatment plan. The patient is aware they should contact our office by phone for worsening of their current condition or the appearance of new urologic symptoms. Compliance is encouraged with any medications and followup testing that is ordered. It is a privilege to participate in the urologic care of your patient. If you have any questions or concerns regarding treatment for the above conditions, or other urologic issues, please do not hesitate to contact me. The office telephone contact is [phone]. Sincerely, Dr René Kaufman MD, [facility] - Urology Compassionate Specialist Care for the Genitourinary System Coding Level of Care Code Est Pt Level 4 (06558) Complex EM visit Add On G2211 Diagnoses Overactive bladder N32.81 CPT Codes Cystoscopy - CPT: 03587-[id number] ([id number])
--- OUTSIDE RECORDS SUMMARY | 2025-03-08 12:06 | XMS_ITS | Patient Health Record ---
Author Organization [facility] Address [address] [place] [address] Care Team Providers Care Student Life Vice President Name Role Phone Haseeb Haile MD Primary Care Provider Pablo Stokes Unavailable [phone] Allergies No Known Allergies Reason For Referral No Information Medications Medication SIG (Take, Route, Frequency, Duration) Notes Start Date End Date Status Allopurinol 100 MG 1 tablet Orally Once a day; Duration: 30 day(s) Active Omeprazole 20 MG 1 capsule 30 minutes before morning meal Orally Once a day; Duration: 30 day(s) Active Flomax 0.4 MG 1 capsule Orally Onc e a day; Duration: 30 day(s) Active Finasteride 5 MG 1 tablet Orally Once a day; Duration: 30 day(s) Active Lisinopril-hydroCHLOROthiaz frannie 20-12.5 MG 1 tablet Orally Once a day; Duration: 30 day(s) Active Metoprolol Succinate Active Atorvastatin [...] 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) (56043808982356334 ) Unspecified atherosclerosis of [place] arteries of extremities, bilateral legs (I70.203) Active confirmed Problem Localized, primary osteoarthritis of the ankle and/or foot (090278684) Primary osteoarthritis, right ankle and foot (M19.071) Active confirmed Problem Localized, primary osteoarthritis of the ankle and/or foot (873918146) Primary osteoarthritis, left 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) Active confirmed Problem Acquired hammer toe of right foot (8485824224197233) Other hammer toe(s) (acquired), right foot (M20.41) Active confirmed Problem Acquired hammer toe of left foot (7732594631904991) Other hammer toe(s) (acquired), left foot (M20.42) Active confirmed Plan Of Treatment Pending Test Test Name Order Date X ray : Foot, left 3V 05/21/2022 X ray : Foot, right 3V 05/21/2022 Insurance Providers Payer Name Payer Address Payer Phone Subscriber Number Group Number Insured Name Patient Relationship to Insured Coverage Start Date Coverage End Date [facility] 65 Medicare Preferred [address] [place] [address] [id number] Santos Farley Self - patient is the insured Medical (General) History Medical History History ICD Code Arthritis High blood pressure Poor circulation Surgical History Surgery Date(Month/Year) finger surgery vein surgery 2020
== END 2025-03-08 11:50 | disposition home or self-care (01) ==
LOC: HO.HUSH 10:45
PROVIDERS: PCP Internal Medicine; Visit Provider Urology
DX: N32.81 Overactive bladder (principal); N40.1 Benign prostatic hyperplasia with lower urinary tract symptoms; N13.8 Other obstructive and reflux uropathy
CPT/HCPCS: 52000; 99214

== ENCOUNTER → 2025-03-08 10:45 | Outpatient (BNVA) | payer MEDICARE, SELFPAY | PROVIDERS: PCP Internal Medicine; Visit Provider Urology | DX: N32.81 Overactive bladder (principal) | CPT/HCPCS: 52000; 99212 ==

== ENCOUNTER 2025-07-05 14:49 | Outpatient (AMB) | payer MEDICARE, SELFPAY ==
--- NOTE | 2025-07-05 14:55 | A.OFFVIS_ITS ---
Intake Visit Reasons: 4m/PVR/UA Intake Note: Patient is present for 4 mo follow up c/o having nocturia every hour Urology Medication:FINASTERIDE,ALLOPURINOL, Myrbetriq Antibiotic Allergy:NONE Blood Thinner:APIXABAN PVR: 49 mls Ice Cream Machine Operator Required: No Accompanied by: Self / Same As Patient Allergies oxybutynin Allergy (Unknown, Verified 03/08/25 10:56) Unknown HPI Comments Details: Santos RODRIGUEZ is a very pleasant Mongolian Swedish. He is a patient of Dr Haile. He is seen today for the following urologic conditions. - lower urinary tract symptoms - weakness of stream - erectile bladder Four month follow-up Complaining of consistent nocturia Failed VESIcare, solifenacin, Gemtesa Trial DDAVP Next option would be Botox PVR 40 cc PSA 10/18 1.8, 10/19 3.5 Lower Urinary Tract Symptoms: Current visit is for further evaluation of, lower urinary tract symptoms, predominate obstructive symptoms. Current treatment includes medication, 5-AR. - maximum dose alpha-yenny and finasteride - 10 mg terazosin, 5 mg finasteride Prostate Symptom Score /20 , Mild (0-8), Bother 3. Symptoms include incomplete emptying, nocturia (>2) /20 , weak stream, and are stable. Greenlight laser 01/15 Prostate volume 50+gm. Testing at next visit will include bladder scan. Treatment plan continue with current medications [facility] Medical History Atrial fibrillation Cataract BPH (benign prostatic hyperplasia) Gout High cholesterol GERD (gastroesophageal reflux disease) HTN (hypertension) Surgical History History of surgery Social History Patient Tobacco Use Status: Former Tobacco user Review of Systems Const Denies chills and Denies fever(s) Card Reports no additional complaints and Denies syncope Resp Denies cough GI Denies abdominal pain and Denies heartburn Reports as per HPI and Denies change in libido Neuro Denies syncope Psych Denies change in libido Endo Denies change in libido Physical Exam Const General: cooperative, healthy appearing, comfortable and no acute distress Orientation/consciousness: patient oriented x3 HEENT Face and sinus: Yes normal facial exam Mouth: moist mucous membranes Neck Neck: Yes normal visual inspection, Yes full ROM and Yes trachea midline Chest Chest palpation & inspection: normal inspection of the chest Resp Effort & Inspection: normal respiratory effort, able to speak in complete sentences and no respiratory distress GI Inspection: Yes normal to inspection Back/Spine/Pelvis Cervical Spine: normal cervical lordosis Thoracic/Lumbar Spine: thoracic and lumbar spine normal to inspection Skin General skin exam: no rashes or lesions noted Neuro General: patient oriented x3, gait normal, tone normal and moves all extremities Extrem General: Yes normal to inspection and Yes capillary refill normal Office Procedures Post Void Residual Post Residual Void Post Void Residual (PVR): 49 [id number]-[id number] Void Residual by ultrasound Results AMB Urinalysis, Automated UA Leukoctes 15 Faviola/uL Last Edit by Phylicia Mcrae [facility] on 07/05/25 15:11 UA Nitrite Negative Last Edit by Phylicia Mcrae [facility] on 07/05/25 15:11 UA Urobilinogen 0.2 mg/dL Last Edit by Phylicia Mcrae [facility] on 07/05/25 15:11 UA Protein 15 mg/dL Last Edit by Phylicia Mcrae [facility] on 07/05/25 15:11 UA pH 6.0 Last Edit by Phylicia Mcrae [facility] on 07/05/25 15:11 UA Blood 0 Dereck/uL Last Edit by Phylicia Mcrae [facility] on 07/05/25 15:11 UA Specific [place] 1.015 Last Edit by Phylicia Mcrae [facility] on 07/05/25 15:1 1 UA Ketone Negative Last Edit by Phylicia Mcrae [facility] on 07/05/25 15:11 UA Bilirubin 0 mg/dL Last Edit by Phylicia Mcrae [facility] on 07/05/25 15:11 UA Glucose 0 mg/dL Last Edit by Phylicia Mcrae [facility] on 07/05/25 15:11 Results Reviewed Results Reviewed: Laboratory Last Values Urine pH (Auto) 6.0 07/05/25 15:09 Specific [place] (Auto) 1.015 07/05/25 15:09 Urine Protein (Auto) 15 mg/dL 07/05/25 15:09 Glucose (UA)(Auto) 0 mg/dL 07/05/25 15:09 Urine Ketones (Auto) Negative 07/05/25 15:09 Urine Blood (Auto) 0 Dereck/uL 07/05/25 15:09 Urine Nitrite (Auto) Negative 07/05/25 15:09 Urine Bilirubin (Auto) 0 mg/dL 07/05/25 15:09 Urine Urobilinogen (Auto) 0.2 mg/dL 07/05/25 15:09 Leukocyte Esterase (Auto) 15 Faviola/uL 07/05/25 15:09 Assessment & Plan Assessment & Plan (1) Nocturia more than twice per night: Code(s): R35.1 - Nocturia Category: Medical (2) Overactive bladder: Code(s): N32.81 - Overactive bladder Category: Medical Plan Trial DDAVP Three-month follow-up Medications: New desmopressin 0.1 mg PO BEDTIME 30 tabs 1RF 30 days R35.1 - Nocturia Patient Instructions: This note is constructed using voice recognition software. While every effort has been made to ensure accuracy senior architect/design manager errors may have been included. Imaging studies, laboratory and physical exam results were discussed and reviewed in detail. No major barriers to patient understanding were identified. An opportunity to ask questions regarding the treatment plan was provided. All questions were answered. The patient expressed understanding and agreement with the above treatment plan. The patient is aware they should contact our office by phone for worsening of their current condition or the appearance of new urologic symptoms. Compliance is encouraged with any medications and followup testing that is ordered. It is a privilege to participate in the urologic care of your patient. If you have any questions or concerns regarding treatment for the above conditions, or other urologic issues, please do not hesitate to contact me. The office telephone contact is [phone]. Sincerely, Dr René Kaufman MD, [facility] - Urology Compassionate Specialist Care for the Genitourinary System Coding Level of Care Code Est Pt Level 4 (43016) Complex EM visit Add On G2211 Diagnoses Nocturia more than twice per night R35.1 Overactive bladder N32.81 CPT Codes Post Residual Void - PVR CPT Code: 73475-Ggdr Void Residual by ultrasound ([id number])
--- OUTSIDE RECORDS SUMMARY | 2025-07-05 16:35 | XMS_ITS | Patient Health Record ---
Author Organization [facility] Address [address] [place] [address] Care Team Providers Care Adjunct Art History Instructor Name Role Phone Haseeb Haile MD Primary Care Provider Pablo Culver Unavailable [phone] Allergies No Known Allergies Reason For Referral [...] 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) (34980269303791848 ) Unspecified atherosclerosis of [place] arteries of extremities, bilateral legs (I70.203) Active confirmed Problem Localized, primary osteoarthritis of the ankle and/or foot (923729844) Primary osteoarthritis, right ankle and foot (M19.071) Active confirmed Problem Localized, primary osteoarthritis of the ankle and/or foot (933569046) Primary osteoarthritis, left 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) Active confirmed Problem Acquired hammer toe of right foot (7756194587703027) Other hammer toe(s) (acquired), right foot (M20.41) Active confirmed Problem Acquired hammer toe of left foot (1560760342768161) Other hammer toe(s) (acquired), left foot (M20.42) Active confirmed Plan Of Treatment Pending Test Test Name Order Date X ray : Foot, left 3V 05/21/2022 X ray : Foot, right 3V 05/21/2022 Insurance Providers Payer Name Payer Address Payer Phone Subscriber Number Group Number Insured Name Patient Relationship to Insured Coverage Start Date Coverage End Date [facility] 65 Medicare Preferred [address] [place] [address] [id number] Santos Farley Self - patient is the insured Medical (General) History Medical History History ICD Code Arthritis High blood pressure Poor circulation Surgical History Surgery Date(Month/Year) finger surgery vein surgery 2020
== END 2025-07-05 15:26 | disposition home or self-care (01) ==
LOC: HO.HUSH 14:50
PROVIDERS: PCP Internal Medicine; Visit Provider Urology
DX: R35.1 Nocturia (principal); N32.81 Overactive bladder
CPT/HCPCS: 99214; G2211

== ENCOUNTER → 2025-07-05 14:49 | Outpatient (BNVA) | payer MEDICARE, SELFPAY | PROVIDERS: PCP Internal Medicine; Visit Provider Urology | DX: R35.1 Nocturia (principal); N32.81 Overactive bladder | CPT/HCPCS: 51798; 99212 ==